=== PATIENT | female | born 1985 | race Caucasian/White ===

== ENCOUNTER → 2019-11-28 16:01 | Outpatient (CLI) | payer OTHER, SELFPAY ==
--- NOTE | ~2019-11-28 | US_ITS ---
EXAMINATION: US OB follow up DATE: 11/28/2019 16:33 INDICATION: Gestational size less than estimated dates. TECHNIQUE: Real-time transabdominal obstetric ultrasound. FINDINGS: Comparison to 09/05/2019 There is a single living fetus in vertex presentation. The placenta is posterior/fundal without plac enta previa. cardiac activity and movement is noted with a heart rate of 150 beats per minute. T he amniotic fluid volume is normal. JEANIE is 13.1 cm. The following biometric data were obtained: BPD: 77mm corresponds to gestational age 31 weeks 0 days. Head circumference: 283mm corresponds to gestational age 31 weeks 0 days. Abdominal circumference: 264mm corresponds to gestational age 30 weeks 4 days. Femur length: 59mm corresponds to gestational age 30 weeks 5 days. Head circumference to abdominal circumference ratio: 1.07 normal range for gestational age is 0.95-1. 17. Estimated weight: 1620grams +/- 243grams.] IMPRESSION: 1. Single living fetus in vertex presentation with an estimated gestational age of 31 weeks 1 days b y inititial ultrasound. Appropriate interval growth. 2. Normal placenta. Reviewed, dictated and finalized at location A. M HAND IMPRESSION: 1. Single living fetus in vertex presentation with an estimated gestational ag e of 31 weeks 1 days by inititial ultrasound. Appropriate interval growt h. 2. Normal placenta.
== END ==
PROVIDERS: Visit Provider Obstetrics & Gynecology Gynecology
DX: O36.5930 Maternal care for other known or suspected poor fetal growth, third trimester, not applicable or unspecified (principal); Z3A.31 31 weeks gestation of pregnancy
CPT/HCPCS: 76816

== ENCOUNTER 2020-01-20 12:36 | Outpatient (CLI) | payer OTHER, SELFPAY ==
[2020-01-20 12:54] LABS: Hematocrit 37.9 % (37.0-47.0); Hemoglobin 12.2 g/dL (12.0-15.0); Mean Corpuscular HGB Conc 32.2 g/dl (32-36); Mean Corpuscular Volume 93.1 fl (80-100); Mean Platelet Volume 10.5 fl (7.4-10.4); Platelet Count Result 199 k/mm3 (150-375); Red Blood Count 4.07 M/mm3 (4.2-5.4); Red Cell Distribution Width 12.9 % (11.5-14.5); White Blood Count 7.4 K/mm3 (4.5-10.0)
[2020-01-21 16:07] LABS: Rapid Plasma Reagin Non-Reactive (NonReactive)
== END 2020-01-20 12:37 | disposition home or self-care (01) ==
PROVIDERS: PCP Emergency Medicine; Visit Provider Obstetrics & Gynecology Gynecology
DX: Z34.93 Encounter for supervision of normal pregnancy, unspecified, third trimester (principal); Z3A.00 Weeks of gestation of pregnancy not specified
CPT/HCPCS: 36415; 85027; 86592; 86850; 86900; 86901

== ENCOUNTER 2020-01-21 04:45 | Inpatient (IN) | payer OTHER, SELFPAY ==
[2020-01-21] VITALS (61 sets, daily range): BP systolic 86–117; BP diastolic 43–88; PULSE 55–136; RESP 14–19; TEMP 36.1–37; O2SAT 85–100; BMI 24.3
[2020-01-21] MEDS: LACTATED RINGERS 1,000 ML 999 ML IV CONT (05:16)
--- NOTE | 2020-01-21 05:19 | LDADM ---
This patient, Maite Burnette, was admitted to Labor/Delivery/Recovery 120 on 01/21/20 at 04:45. Plans for labor, pain management and were discussed with patient. Patient/family oriented to hospital policies and general routines including ID bracelet, bed and alarms, visiting hours, pain management, procedures, bathroom and other care routines, personal items, smoking policy, room service/diet and guest tray routines, infant security routines, and visiting hours. Patient/Family are encouraged to report perceived risks to care and to ask questions if they do not understand what they are told or what they should do. See OBIX for further documentation.
--- NOTE | 2020-01-21 05:38 | WPDANESEPPF ---
Anes - Initial Pre Proc Eval Procedure: Operation Date: 01/21/20 06:45 Proposed Procedures p Repeat Section with Bilateral Tubal Ligation With Fallopian Rings - Laurie Waters MD Date/Time: 01/21/20 05:38 Surgeon: Laurie Waters MD Pre Op Diagnosis: caesarean section Patient Data Age: 34 Gender: F Height: 5 ft 6 in Weight: 68.5 kg Last Vital Signs Pulse 78 01/21/20 05:16 BP 117/88 01/21/20 05:16 Allergies Allergy/AdvReac Type Severity Reaction Status Date / Time Sulfa (Sulfonamide Allergy Unknown Verified 03/13/14 14:42 Antibiotics) Home Medications Medication Instructions Recorded Confirmed Type cholecalciferol (vitamin D3) 50 2,000 unit PO DAILY 12/24/19 01/21/20 History mcg (2,000 unit) capsule omega-3 fatty acids 500 mg capsule 500 mg PO BID 12/24/19 01/21/20 History vit 115-iron fum 29 mg 1 tablet PO DAILY 12/24/19 01/21/20 History iron-folic acid 1 mg-dss 25 mg tablet Patient hx anesthesia problems: other (severe pruritis with 2 epidurals despite lower dose (0.1mg) on second in 2018) Family hx anesthesia problems: none PMFSH Family History Family History Father Hypertension Social History Social History Smoking status: Never smoker Alcohol intake: former Substance use: never Gender identity (if verbalized by the patient): Female Spiritual care concerns: No Anes - Eval Final PreProcedure Day of Procedure 01/21/20 05:38 Patient weight: normal Heart: regular rate and rhythm Lungs: clear to auscultation Airway: Mallampati scale class II Neurological: alert and oriented Last oral intake: >/= 8 hours ASA classification: II Emergent: no Anesthetic plan: proceed Anesthesia type and monitoring: regional spinal and standard monitoring Informed Consent: The patient's anesthetic plan and its attendant risks and benefits were discussed with the patient/family/POA. Questions were solicited and answers provided to the satisfaction of the patient/family/POA.
[2020-01-21] MEDS: LACTATED RINGERS 1,000 ML 125 ML IV CONT (05:50)
--- NOTE | 2020-01-21 06:36 | PM.IMHP ---
H&P: HPI History of Present Illness Chief complaint: caesarean section Narrative: Maite Burnette is a 34 year old female with IUP at 39wks. has been uncomplicated. labs: B+; RPR -; HBSAg -; HIV-; GBS +. Patient with 2 prior csections and plans to repeat csection. Patient has also completed her childbearing and requests sterilization. Risks of surgery were reviewed. Risks of BTL were also discussed including the permanent and irreversible nature of BTL, the failure of BTL with increased ectopic if fails, and the risks of bleeding from tubal site. Patient states understanding and agrees to proceed. [facility] Surgical History Surgical History (Updated 01/21/20 @ 06:41 by Laurie Waters MD) deliv NOS-unsp x 2 S/P breast augmentation Family History Family History Father Hypertension Social History Social History Smoking status: Never smoker Alcohol intake: former Substance use: never Gender identity (if verbalized by the patient): Female Spiritual care concerns: No Meds Home Medications and Allergies Home Medications Medication Instructions Recorded Confirmed Type cholecalciferol (vitamin D3) 50 2,000 unit PO DAILY 12/24/19 01/21/20 History mcg (2,000 unit) capsule omega-3 fatty acids 500 mg capsule 500 mg PO BID 12/24/19 01/21/20 History vit 115-iron fum 29 mg 1 tablet PO DAILY 12/24/19 01/21/20 History iron-folic acid 1 mg-dss 25 mg tablet Allergies Allergy/AdvReac Type Severity Reaction Status Date / Time Sulfa (Sulfonamide Allergy Unknown Verified 03/13/14 14:42 Antibiotics) Vital Signs Vital Signs - 24 hr 01/21/20 05:16 Pulse Rate 78 Blood Pressure 117/88 Exam Const: General: no acute distress Resp: Auscultation: clear to auscultation bilaterally GI: GI Palp: Yes Soft to palpation Percussion: Yes other (fundus 38 cm) Assessment and Plan Assessment and plan (1) deliv NOS-unsp: Status: Acute Assessment and Plan: plan repeat Csection (2) 39 weeks gestation of : Code(s): Z3A.39 - 39 weeks gestation of Status: Acute (3) Encounter for sterilization: Code(s): Z30.2 - Encounter for sterilization Status: Acute Assessment and Plan: plan BTL
[2020-01-21] MEDS: KETOROLAC 30 MG/ML VIAL (*BKC) IV PUSH (07:34)
--- NOTE | 2020-01-21 07:50 | PM.OP ---
Procedure Note - Brief Procedure Note - Brief Date of procedure: 01/21/20 Pre-op diagnosis: caesarean section requests sterilization IUP 39 wk Post-op diagnosis: same Procedure performed: Repeat LTCS and BTL Anesthesia: spinal Surgeon: Laurie Waters MD Estimated blood loss (mL): 220 Drains: Yes (north) Packing: No Pathology: yes (tubes) Complications: No immediate complications Condition: stable Disposition: PACU Findings: male with 9/9 Apgars weighing 6#10oz; normal appearing tubes, ovaries, and uterus
--- NOTE | 2020-01-21 07:52 | PM.OBDSVD ---
DS: Diagnosis Admitting Diagnosis Admitting Diagnosis: 39 weeks gestation of Discharge Diagnosis (1) 39 weeks gestation of : Code(s): Z3A.39 - 39 weeks gestation of Status: Acute (2) Encounter for sterilization: Code(s): Z30.2 - Encounter for sterilization Status: Acute (3) deliv NOS-unsp: Status: Acute (4) delivery delivered: Code(s): O82 - Encounter for delivery without indication Status: Acute OB - DS: Summary OB Procedures : Ultrasound OB Procedures Intrapartum: low cervical, transverse and Tubal ligation OB Procedures: : None Peripartum Data Delivery Method: Section Procedures: Procedures Operation Date: 01/21/20 06:45 <No data on this case meets the specified criteria> complications: none Status at Discharge Functional status at discharge: independent ambulation Overall status at discharge: patient is progressing back to baseline Time Spent with Patient Time attestation: Total time spent providing and/or coordinating discharge services: DS: Data Data Completed and Pending Pending studies at discharge: Pending at discharge 01/21/20 07:35 Surgical [PTH] Routine Discharge Plan Discharge Attending physician on discharge: Laurie Waters Discharging Clinician: Laurie Waters Anticipated Discharge Date/Time: 01/23/20 07:53 Patient Disposition: Home, Self-Care Activity: may shower, may drive after 2 weeks and pelvic rest Diet: regular Patient Instructions: Antibiotic Form Stand Alone Forms: General Discharge Information Follow-up/Referrals: Laurie Waters MD [Physician] - 1 Week Discharge Medications: New hydrocodone-acetaminophen 5-325 mg Tablet 1 tab PO Q3H PRN (Reason: Moderate Pain (4-6)) Qty: 15 RF: 0 Continued cholecalciferol (vitamin D3) 50 mcg (2,000 unit) capsule 2,000 unit PO DAILY RF: 0 19 (with docusate) 29 mg iron- 1 mg-25 mg tablet 1 tablet PO DAILY RF: 0 omega-3 fatty acids 500 mg capsule 500 mg PO BID RF: 0 Date of admission: 01/21/20 04:45 Primary Care Provider: Mac Atkinson Admitting Provider: Laurie Waters Attending physician on admission: Laurie Waters Condition: Stable
[2020-01-21] MEDS: LORATADINE 10 MG TABLET PO (08:00)
[2020-01-21] MEDS: LACTATED RINGERS 250 ML 999 ML IVPB (08:45)
--- NOTE | 2020-01-21 08:45 | OP_ITS ---
DATE OF PROCEDURE: 01/21/2020 PREOPERATIVE DIAGNOSES: Previous section x2, requests sterilization, intrauterine at 39 weeks. POSTOPERATIVE DIAGNOSES: Previous section x2, requests sterilization, intrauterine at 39 weeks. PROCEDURE: Repeat low-transverse section and bilateral tubal ligation. ANESTHESIA: Spinal. FINDINGS: Male , 6 pounds 10 ounces with Apgars of 9 and 9. Normal-appearing tubes, ovaries, and uterus. ESTIMATED BLOOD LOSS: 220 cc. PATHOLOGY: Bilateral partial tubes. PROCEDURE IN DETAIL: The patient was taken to the operating room, placed under anesthesia, prepped and draped in the usual sterile fashion in the dorsal supine position with a leftward tilt. Once the anesthesia was deemed adequate, she was prepped and draped. There was a hair noted on the surgical tray. The patient was undraped and all instruments were reopened. The patient was redraped. The Pfannenstiel skin incision was then made with a scalpel, carried down to the underlying layer of fascia. The fascia was nicked in the midline and extended laterally using George scissors. [facility] was used to tent the fascia, which was then dissected off using sharp and blunt dissection. The rectus muscles were in the midline. The peritoneum was entered during this process. The incision was extended with blunt traction. The bladder blade was placed. The vesicouterine perineum was tented, entered with Metzenbaum and extended laterally. The bladder flap was created using sharp and blunt dissection due to adhesions. The bladder blade was replaced. The lower uterine segment was incised in a transverse fashion with a scalpel and extended laterally using blunt traction. Membranes were ruptured. Clear fluid was noted. The 's head was guided through the incision while the glass ribbon machine operator assistant applied fundal pressure. The remainder of the infant was fully delivered. The cord was clamped and cut. The infant handed to the waiting nursery nurse. The placenta was removed using manual traction after cord blood was drawn. The placenta is sent for storage. The uterus was cleared of all clots and debris and exteriorized. The uterine incision was closed using 0 Monocryl in a running locked fashion. Same suture was used to imbricate. Good hemostasis was noted. The patient is verified that she wishes to proceed with tubal ligation. The right tube was grasped with a [place]. The distal two-thirds of the tube were cross clamped, excised and suture ligated with 0 Vicryl. The identical procedure was performed on the opposite side. Good hemostasis was noted at both pedicles. The cul-de-sac was irrigated. The uterus was returned to the abdomen. The gutters were irrigated. The incision was again inspected and noted to be hemostatic. The bladder flap had several areas that required Bovie cautery for hemostasis. The fascia was then closed using 0 Vicryl in a running fashion. Subcutaneous tissues are irrigated and made hemostatic using Bovie cautery. Skin was closed using 4-0 Vicryl in a subcuticular fashion. DermaFLEX was placed over the incision. The patient was taken to Recovery in stable condition. Federico I MT: Minerva
--- NOTE | 2020-01-21 10:15 | PC.NURSE ---
Patient transferred to post room #287 via stretcher. Support person present. Oriented to unit, room, information board, rooming in, admission packet and security measures. Patient verbalizes understanding.
[2020-01-21] MEDS: OXYTOCIN 30 UNITS/NS 500 ML 30 UNITS/500 ML BAG 125 UNITS IV CONT (11:56)
[2020-01-21] MEDS: IBUPROFEN 600 MG TABLET PO ×2 (16:32→22:26)
[2020-01-21] MEDS: DOCUSATE SODIUM 100 MG CAPSULE PO (16:33)
[2020-01-21] MEDS: SIMETHICONE 80 MG TAB.CHEW PO (16:35)
[2020-01-21] MEDS: DEXTROSE 5%/0.45% SOD CHL 1,000 ML 125 ML IV CONT (16:35)
[2020-01-22 04:00] VITALS: BP 101/61; PULSE 65; RESP 16; TEMP 36.5; O2SAT 99
[2020-01-22 05:32] LABS: Basophils Absolute Auto 0.1 K/mm3 (0.0-0.1); Basophils Percent Auto 0.6 % (0.2-1.2); Eosinophils Absolute Auto 0.2 K/mm3 (0-0.3); Eosinophils Percent Auto 1.5 % (0-4.4); Hematocrit 30.8 % (37.0-47.0); Hemoglobin 10.1 g/dL (12.0-15.0); Immature Granulocyte Absolute 0.03 K/mm3 (0.00-0.031); Immature Granulocyte Percent A 0.3 % (0-0.5); Lymphocytes Absolute Auto 2.39 K/mm3 (0.9-3.2); Lymphocytes Percent Auto 24.6 % (18.3-44.2); Mean Corpuscular HGB Conc 32.8 g/dl (32-36); Mean Corpuscular Volume 94.5 fl (80-100); Monocytes Absolute Auto 0.8 K/mm3 (0.1-0.6); Monocytes Percent Auto 7.9 % (2.6-8.5); Neutrophils Absolute Auto 6.3 K/mm3 (1.3-6.7); Neutrophils Percent Auto 65.1 % (45.5-73.1); Platelet Count Result 137 k/mm3 (150-375); Red Blood Count 3.26 M/mm3 (4.2-5.4); Red Cell Distribution Width 12.5 % (11.5-14.5); White Blood Count 9.7 K/mm3 (4.5-10.0)
[2020-01-22] MEDS: IBUPROFEN 600 MG TABLET PO ×3 (05:56→20:02)
[2020-01-22] MEDS: SIMETHICONE 80 MG TAB.CHEW PO ×2 (05:57→09:29)
--- NOTE | 2020-01-22 07:44 | WPDANLDNPN2 ---
Anes-Prog Note L&D-Neuraxial Date/Time: 01/22/20 07:44 Neuraxial medications: intrathecal PF morphine Opiod-related complaints: none Patient feedback: Patient satisfied with post-operative pain management.
[2020-01-22 08:11] VITALS: BP 117/72; PULSE 86; RESP 18; TEMP 36.2; O2SAT 100
--- NOTE | 2020-01-22 08:23 | P.PNOB_ITS ---
OB - PN: Subj Subjective Date/time seen: 01/22/20 08:23 Patient comments: no complaints, pain well controlled, tolerating diet and flatus present [place] baby status: doing well and nursing well feeding status: exclusively breast feeding OB - PN: Obj Data Labs CBC & Chem 7: 01/22/20 04:49 Labs: Laboratory Results - last 24 hr 01/22/20 04:49 WBC 9.7 RBC 3.26 L Hgb 10.1 L Hct 30.8 L MCV 94.5 MCH 31.0 MCHC 32.8 RDW 12.5 Plt Count 137 L MPV 11.0 H Immature Gran % (Auto) 0.3 Neut % (Auto) 65.1 Lymph % (Auto) 24.6 Bland % (Auto) 7.9 Eos % (Auto) 1.5 Baso % (Auto) 0.6 Lymph # (Auto) 2.39 Bland # (Auto) 0.8 H Eos # (Auto) 0.2 Baso # (Auto) 0.1 Abs Immat Gran (auto) 0.03 Absolute Neuts (auto) 6.3 Absolute Nucleated RBC 0.0 Nucleated RBC % 0.0 OB - PN A/P Plan day: 1 Plan: routine care Comments: encourage ambulation BF instructed Desires infant to be circumcised tomorrow Time Spent With Patient Time: Total time spent is greater than 50% in coordination of care (as documented) at patient's floor/unit and/or counseling patient: Time with patient: less than 15 minutes Review of Systems Constitutional: Constitutional: Reports no additional constitutional complaints Cardiovascular: Cardiovascular: Reports no additional cardiovascular complaints Respiratory: Respiratory: Reports no additional respiratory complaints Gastrointestinal: Gastrointestinal: Reports no additional gastrointestinal complaints Genitourinary: Genitourinary: Reports no additional female genitourinary complaints Exam Const: General: comfortable, no acute distress, alert and awake Resp: Effort & Inspection: normal respiratory effort Auscultation: clear to auscultation bilaterally Cardio: Rate: regular rate GI: Auscultation: normal bowel sounds Other: Incision: C/D/I
[2020-01-22] MEDS: MULTIVIT/MIN/PREN/FOL AC/IRON TABLET 1 TAB PO (09:29)
[2020-01-22] MEDS: DOCUSATE SODIUM 100 MG CAPSULE PO ×2 (09:29→17:01)
--- NOTE | 2020-01-22 11:05 | PC.NURSE ---
Observed mother is able to independently latch with appropriate positioning/alignment. She denies any nipple discomfort, is feeding as required and waking infant to feed if needed. is currently meeting outcomes for weight, output, jaundice and feeding frequencies.
[2020-01-22 19:50] VITALS: BP 107/70; PULSE 75; RESP 18; TEMP 36.6; O2SAT 99
--- NOTE | 2020-01-23 07:30 | PC.NURSE ---
PT introductions made and plan of care discussed per post op csection , pain management, breast feeding, daily care activities and pending discharge to home. PT verbalized understanding of such care.
[2020-01-23 07:59] VITALS: BP 113/56; PULSE 78; RESP 16; TEMP 36.7; O2SAT 96
--- NOTE | 2020-01-23 08:45 | PM.OBPNVD ---
OB - PN: Subj Subjective Date/time seen: 01/23/20 08:45 Patient comments: no complaints and pain well controlled baby status: doing well and nursing well OB - PN: Obj Data Labs CBC & Chem 7: 01/22/20 04:49 OB - PN A/P Plan day: 2 Plan: routine care and discharge home Time Spent With Patient Time: Total time spent is greater than 50% in coordination of care (as documented) at patient's floor/unit and/or counseling patient: Exam GI: Other: inc c/d/i : Bimanual exam- vagina & uterus: other (Uterus firm, nt @U)
--- NOTE | 2020-01-23 10:15 | PC.NURSE ---
Mother is able to independently latch infant with appropriate positioning/alignment. She denies any nipple discomfort, is feeding as required and waking to feed if needed. has had 8 effective feedings in the past 24 hours, and is currently meeting outcomes for weight, output, jaundice and feeding frequencies. Mother states she feels confident to continue effective at home. Reviewed transition to breast milk, signs of adequate intake, and engorgement/relief. Instructed to call ICP if intake/output less than required. Reviewed regular medications mother is taking. Information provided per Rena. Reviewed community resources on the [facility] website and in the Mom/Baby guide. Information on outpatient services provided. Mother has no further questions at this time.
[2020-01-23] MEDS: DOCUSATE SODIUM 100 MG CAPSULE PO (10:53)
[2020-01-23] MEDS: SIMETHICONE 80 MG TAB.CHEW PO (10:54)
[2020-01-23] MEDS: IBUPROFEN 600 MG TABLET PO (10:54)
[2020-01-23] MEDS: MULTIVIT/MIN/PREN/FOL AC/IRON TABLET 1 TAB PO (10:54)
[2020-01-23 10:55] VITALS: PULSE 78; RESP 16; O2SAT 96
--- NOTE | 2020-01-23 13:00 | PC.NURSE ---
PT received discharge instructions per protocol and verbalized understanding of such instructions.
--- NOTE | 2020-01-23 13:33 | PC.NURSE ---
PT discharged to home ambulatory accompanied by spouse and to waiting car. Follow up appts confirmed
[2020-01-24 11:04] VITALS: BP 110/66; PULSE 80; RESP 16; TEMP 36.8
== END 2020-01-23 13:33 | disposition home or self-care (01) | DRG 785 ==
LOC: ANHLDR 07:53 → ANHOB2 10:28
PROVIDERS: Admitting Provider Obstetrics & Gynecology Gynecology; PCP Emergency Medicine; Visit Provider Obstetrics & Gynecology Gynecology
PROC: 10D00Z1 Extraction of Products of Conception, Low, Open Approach (ICD-10-PCS; CPT 59514; principal; 2020-01-21 06:45)
DX: O34.211 Maternal care for low transverse scar from previous cesarean delivery (principal); Z37.0 Single live birth; Z3A.39 39 weeks gestation of pregnancy; Z30.2 Encounter for sterilization
CPT/HCPCS: 36415; 85025; 88302; A9270; J0131; J0690; J1885; J2274; J2370; J2405; J2590; J3010; J7120

== ENCOUNTER → 2021-06-07 15:29 | Outpatient (CLI) | payer OTHER, SELFPAY ==
--- NOTE | ~2021-06-07 | US_ITS ---
EXAMINATION: US transvaginal DATE: 06/07/2021 16:02 INDICATION: Normal uterine bleeding TECHNIQUE: Multiple endovaginal sonographic images of the pelvis were obtained. COMPARISON: None. FINDINGS: The uterus measures 8.5 x 4.7 x 4.7 cm. The endometrial complex measures 11 mm in thickness. Cesarea n section scar is seen along the anterior lower uterine segment. The right ovary measures 3.9 x 2.7 x 2.6 cm. The left ovary measures 3.1 x 3.2 x 1.8 cm. Vascular flow identified in both ovaries on colo r Doppler. There are also multiple small anechoic follicles at both ovaries, the largest on the right measuring up to 1.2 cm. There is a trace amount of free fluid in the pelvis. IMPRESSION: 1. Endometrial complex measures 11 mm in thickness which is within normal limits during the secretory phase. Reviewed, dictated and finalized at location A. IMPRESSION: 1. Endometrial complex measures 11 mm in thickness which is within normal limit s during the secretory phase.
== END ==
PROVIDERS: Visit Provider Nurse Practitioner
DX: N93.8 Other specified abnormal uterine and vaginal bleeding (principal)
CPT/HCPCS: 76830